=== PATIENT | male | born 1970 | race African-American/Black ===

== ENCOUNTER 2017-10-13 10:03 | Emergency (ER) | payer SELFPAY ==
[~2017-10-13] VITALS: Ht 190.5 cm; Wt 124.7 kg
[2017-10-13 11:36] VITALS: BP 114/84
== END 2017-10-13 11:43 | disposition home or self-care (01) ==
LOC: ER 10:03
DX: S46.911A Strain of unspecified muscle, fascia and tendon at shoulder and upper arm level, right arm, initial encounter (principal); S46.912A Strain of unspecified muscle, fascia and tendon at shoulder and upper arm level, left arm, initial encounter; V00.131A Fall from skateboard, initial encounter; Y93.51 Activity, roller skating (inline) and skateboarding; Y99.8 Other external cause status; Y92.89 Other specified places as the place of occurrence of the external cause
CPT/HCPCS: 73030